=== PATIENT | female | born 1995 ===

== ENCOUNTER 2024-04-25 08:08 | Outpatient (CLI) | payer OTHER ==
[2024-04-25] MEDS ORDERED: SYNTHROID125 MCG PO (09:42)
== END 2024-04-25 08:12 | disposition home or self-care (01) ==
LOC: PRENATAL 08:08
PROVIDERS: ATTEND Obstetrics & Gynecology Maternal & Fetal Medicine
DX: O44.00 Complete placenta previa NOS or without hemorrhage, unspecified trimester (principal); O36.8199 Decreased fetal movements, unspecified trimester, other fetus; O99.280 Endocrine, nutritional and metabolic diseases complicating pregnancy, unspecified trimester; O99.210 Obesity complicating pregnancy, unspecified trimester; O36.5990 Maternal care for other known or suspected poor fetal growth, unspecified trimester, not applicable or unspecified; Z3A.31 31 weeks gestation of pregnancy

== ENCOUNTER 2024-05-16 08:00 | Outpatient (CLI) | payer OTHER ==
[~2024-05-16 08:00] MED LIST: SYNTHROID125 MCG PO
[2024-05-16] MEDS ORDERED: PRENATA CHEWAB1 EACH PO (12:35)
[2024-05-16] MEDS ORDERED: CHILDREN'S ASPI81 MG PO (12:37)
== END 2024-05-16 08:02 | disposition home or self-care (01) ==
LOC: PRENATAL 08:00
PROVIDERS: ATTEND Obstetrics & Gynecology Maternal & Fetal Medicine
DX: O26.849 Uterine size-date discrepancy, unspecified trimester (principal); O36.8199 Decreased fetal movements, unspecified trimester, other fetus; O99.280 Endocrine, nutritional and metabolic diseases complicating pregnancy, unspecified trimester; O99.210 Obesity complicating pregnancy, unspecified trimester; O36.5990 Maternal care for other known or suspected poor fetal growth, unspecified trimester, not applicable or unspecified; Z3A.33 33 weeks gestation of pregnancy

== ENCOUNTER 2024-05-16 12:08 | Inpatient (IN) | payer OTHER ==
[~2024-05-16] VITALS: Ht 167.6 cm; Wt 2.3 kg
[2024-05-16 11:09] VITALS: BP 110/75
[2024-05-16] MEDS ORDERED: RINGERS SOLUTION,LACTATED 1,000 ML IV SCH (12:15)
[2024-05-16] MEDS ORDERED: PRENATA CHEWAB1 EACH PO (12:35)
[2024-05-16] MEDS ORDERED: CHILDREN'S ASPI81 MG PO (12:37)
[2024-05-16 15:32] VITALS: BP 113/70
[2024-05-16 16:25] VITALS: BP 113/70
[2024-05-16] MEDS ORDERED: BETAMETHASONE ACETATE,SOD PHOS 30 MG/5 ML ML IM SCH (17:00)
[2024-05-16 17:54] LABS: HEMATOCRIT 34.8 % (36.0-45.00); HEMOGLOBIN 12.1 g/dL (12.0-15.00); MEAN CELL VOLUME 84.3 fL (80.00-100.00); MEAN CORPUSCULAR HEMOGLOBIN 29.2 pg (27.00-32.0); MEAN CORPUSCULAR HGB CONC 34.7 g/dl (32.0-36.0); PLATELET COUNT 224 K/uL (150-450); RED BLOOD COUNT 4.13 M/uL (4.00-6.00); RED CELL DISTRIBUTION WIDTH 15.1 % (11.5-14.5)
[2024-05-16 18:18] LABS: ALBUMIN 2.6 gm/dL (3.4-5.0); BILIRUBIN TOTAL 0.54 mg/dL (0.3-1.2); CREATININE SERUM 0.64 mg/dL (0.55-1.02); GFR 108.96; GLOBULINA 3.6 G/DL (2.4-3.5); POTASSIUM 3.84 mEq/L (3.5-5.1); TOTAL PROTEIN 6.2 gm/dL (6.4-8.2)
[2024-05-16 18:55] LABS: PH,URINE 6.5 (5.0-8.0); URINE APPEARANCE Cloudy; URINE BILIRRUBIN Negative (NEGATIVE); URINE BLOOD Negative; URINE COLOR Yellow; URINE GLUCOSE Negative (NEGATIVE); URINE LEUKOCYTE Large; URINE NITRATE Positive; URINE PROTEIN Negative (NEGATIVE); URINE UROBILINOGEN 0.2 E.U./dl
[2024-05-16 18:56] LABS: URINE EPITHELIAL CELLS 10.2 uL (0.0-38.8); URINE WBC 589.5 uL (0.0-23.2)
[2024-05-16 18:58] LABS: URINE BACTERIA > 9821.5 uL (0.0-1933); URINE CAST 0.14 uL (0.0-1.40); URINE KETONE 80 (NEGATIVE)
[2024-05-16] MEDS ORDERED: CEFAZOLIN SODIUM 1,000 MG VIAL IV ONE (19:15)
[2024-05-16] MEDS ORDERED: ASPIRIN 81 MG TABLET.EC PO SCH (19:18)
[2024-05-16 19:25] VITALS: BP 106/69
[2024-05-16] MEDS ORDERED: PNV,CALCIUM 72/IRON/FOLIC ACID 1 TAB TABLET PO NR (19:30)
[2024-05-16 23:28] VITALS: BP 110/64
[2024-05-17] MEDS ORDERED: CEFAZOLIN SODIUM 1,000 MG VIAL IV SCH (02:00)
[2024-05-17 03:14] VITALS: BP 108/67
[2024-05-17] MEDS ORDERED: LEVOTHYROXINE SODIUM 125 MCG TABLET PO SCH (06:00)
[2024-05-17 07:18] VITALS: BP 109/65
[2024-05-17 11:35] VITALS: BP 105/64
[2024-05-17 14:45] VITALS: BP 105/59
[2024-05-17] MEDS ORDERED: PNV,CALCIUM 72/IRON/FOLIC ACID 1 TAB TABLET PO SCH (17:00)
[2024-05-17 20:08] VITALS: BP 117/66
[2024-05-17 23:08] VITALS: BP 130/67
[2024-05-18 03:23] VITALS: BP 115/65
[2024-05-18 07:13] VITALS: BP 123/66
[2024-05-18 11:04] VITALS: BP 123/71
[2024-05-18 14:00] VITALS: BP 117/62
[2024-05-18 23:19] VITALS: BP 124/71
[2024-05-19 08:01] VITALS: BP 120/80
[2024-05-19 13:44] VITALS: BP 124/81
[2024-05-19 15:41] VITALS: BP 112/74
[2024-05-19] MEDS ORDERED: OXYTOCIN 10 UNITS/ML VIAL ONE (16:43)
[2024-05-19] MEDS ORDERED: ERYTHROMYCIN BASE OPHT 1GM EACH TUBE OP ONE (16:43)
[2024-05-19] MEDS ORDERED: MEPERIDINE HCL/PF 50 MG/ML VIAL IM PRN (18:45)
[2024-05-19] MEDS ORDERED: PROMETHAZINE HCL 50 MG/ML AMPUL IM PRN (18:45)
[2024-05-19] MEDS ORDERED: MORPHINE SULFATE 4 MG/ML VIAL IV ONE ×2 (19:55→20:25)
[2024-05-19] MEDS ORDERED: CEFAZOLIN SODIUM 1,000 MG VIAL ONE (20:06)
[2024-05-19 22:48] VITALS: BP 109/70
[2024-05-20 01:00] VITALS: BP 129/78
[2024-05-20 06:12] LABS: HEMATOCRIT 35.2 % (36.0-45.00); HEMOGLOBIN 11.6 g/dL (12.0-15.00); MEAN CELL VOLUME 85.5 fL (80.00-100.00); MEAN CORPUSCULAR HEMOGLOBIN 28.3 pg (27.00-32.0); MEAN CORPUSCULAR HGB CONC 33.1 g/dl (32.0-36.0); PLATELET COUNT 221 K/uL (150-450); RED BLOOD COUNT 4.11 M/uL (4.00-6.00); RED CELL DISTRIBUTION WIDTH 14.6 % (11.5-14.5)
[2024-05-20 07:44] VITALS: BP 119/75
[2024-05-20] MEDS ORDERED: DOCUSATE SODIUM 100MG CAP PO SCH (08:00)
[2024-05-20] MEDS ORDERED: PNV,CALCIUM 72/IRON/FOLIC ACID 1 TAB TABLET PO SCH (08:00)
[2024-05-20] MEDS ORDERED: SIMETHICONE 125 MG CAPSULE PO SCH (08:00)
[2024-05-20] MEDS ORDERED: OxyCODONE HCL/APAP UD (PERCOCET) PO PRN (08:00)
[2024-05-20 13:27] VITALS: BP 132/86
[2024-05-20 16:00] VITALS: BP 114/72
[2024-05-21 00:20] VITALS: BP 126/80
[2024-05-21 08:20] VITALS: BP 140/60
== END 2024-05-21 12:03 | disposition home or self-care (01) | DRG 786 ==
LOC: OBS/DEL 12:08 → OB/GYN 16:26 → LDR 16:26 → OB/GYN 05-18 12:23
PROVIDERS: Obstetrics & Gynecology; ADMIT Obstetrics & Gynecology; ATTEND Obstetrics & Gynecology
PROC: 4A1HXCZ Monitoring of Products of Conception, Cardiac Rate, External Approach (ICD-10-PCS; 2024-05-16)
PROC: 10D00Z1 Extraction of Products of Conception, Low, Open Approach (ICD-10-PCS; principal; 2024-05-19 16:45)
DX: O36.5930 Maternal care for other known or suspected poor fetal growth, third trimester, not applicable or unspecified (principal); O60.14X0 Preterm labor third trimester with preterm delivery third trimester, not applicable or unspecified; O62.0 Primary inadequate contractions; Z3A.36 36 weeks gestation of pregnancy; Z37.0 Single live birth